=== PATIENT | female | born 1975 | race African-American/Black ===

== ENCOUNTER 2018-09-28 09:22 | Emergency (ER) | payer OTHER ==
[~2018-09-28] VITALS: Ht 157.5 cm; Wt 97.5 kg
[~2018-09-28 09:22] MED LIST: DARVOCET-N 1001 EAC1 PO; LISINOPRIL-HCT1 EACH PO
[2018-09-28 09:51] LABS: URINE BILIRUBIN NEGATIVE (Negative); URINE BLOOD NEGATIVE (Negative); URINE CLARITY CLEAR; URINE COLOR YELLOW; URINE GLUCOSE-RANDOM* NEGATIVE (Negative); URINE KETONES NEGATIVE (Negative); URINE LEUKOCYTES-REFLEX NEGATIVE (Negative); URINE NITRITE-REFLEX NEGATIVE (Negative); URINE PROTEIN (DIPSTICK) NEGATIVE (Negative); URINE UROBILINOGEN 0.2 E.U./dl (0.2-1.0)
[2018-09-28] MEDS ORDERED: FLEXERIL PO (11:11)
[2018-09-28 11:17] VITALS: BP 122/84
== END 2018-09-28 11:18 | disposition home or self-care (01) ==
LOC: ER 09:22
PROVIDERS: Emergency Medicine
DX: M54.5 Low back pain (principal); I10 Essential (primary) hypertension; Z88.5 Allergy status to narcotic agent; Z91.048 Other nonmedicinal substance allergy status; Z90.711 Acquired absence of uterus with remaining cervical stump; Z98.890 Other specified postprocedural states